=== PATIENT | female | born 1990 | race Two or more races ===

== ENCOUNTER 2016-03-30 06:57 | Emergency (ER) | payer MEDICAID ==
[~2016-03-30] VITALS: Ht 154.9 cm; Wt 95.3 kg
[2016-03-30 10:01] VITALS: BP 106/53
[2016-03-30 10:14] LABS: Urine Bilirubin Negative (Negative); Urine Blood Negative /uL (Negative); Urine Color Yellow (Yellow); Urine Glucose Normal (Normal); Urine Mucus FEW (None Seen); Urine Nitrite Negative (Negative); Urine RBC 1 /hpf (0 - 4); Urine Squamous Epithelial Cell FEW /hpf (<5); Urine Urobilinogen Normal (Negative); Urine pH 5.5 (5.0-8.0)
[2016-03-30 10:20] LABS: Urine Ketone 1+ (Negative)
== END 2016-03-30 10:35 | disposition home or self-care (01) ==
LOC: ER 06:57
DX: O23.41 Unspecified infection of urinary tract in pregnancy, first trimester (principal); Z3A.01 Less than 8 weeks gestation of pregnancy
CPT/HCPCS: 36415; 76801; 76817; 81001; 84702

== ENCOUNTER 2016-07-20 20:55 | Observation (INO) | payer MEDICAID ==
[2016-07-20] MEDS ORDERED: LACTATED RINGER'S 1,000 ML IV ONE (22:55)
[2016-07-20] MEDS ORDERED: LACTATED RINGER'S 1,000 ML IV SCH (22:55)
== END 2016-07-21 00:15 | disposition home or self-care (01) | DRG 566 ==
LOC: LDRP 20:55
PROVIDERS: ADMIT Specialist; ATTEND Specialist
DX: O21.2 Late vomiting of pregnancy (principal); Z3A.23 23 weeks gestation of pregnancy
CPT/HCPCS: 59025; 81002; G0378; 96361; 96366

== ENCOUNTER 2019-01-21 11:54 | Emergency (ER) | payer SELFPAY ==
[~2019-01-21] VITALS: Ht 154.9 cm; Wt 91.2 kg
[2019-01-21 13:47] LABS: Basophils # (auto) 0 uL; Basophils % (auto) 0.1 % (0.0-2.0); Eosinophils # (auto) 0 uL; Eosinophils % (auto) 0.5 % (0.0-7.0); Hematocrit 39.4 % (36.0-46.0); Hemoglobin 13.3 g/dL (12.2-16.2); Lymphocytes # (auto) 0.7 uL; Lymphocytes % (auto) 12.7 % (10.0-50.0); Mean Corpuscular Hemoglobin 28.9 pg (28.0-32.0); Mean Corpuscular Hgb Conc. 33.7 g/dL (32.0-36.0); Mean Corpuscular Volume 85.7 fL (80.0-100.0); Monocytes # (auto) 0.3 uL; Monocytes % (auto) 5.3 % (0.0-12.0); Neutrophils # (auto) 4.8 uL; Neutrophils % (auto) 81.4 % (37.0-80.0); Platelet Count (auto) 179 10^3/uL (140-450); Red Cell Distribution Width 15.6 % (11.8-14.3); White Blood Cell 5.8 10^3/uL (4.4-10.8)
[2019-01-21 16:00] VITALS: BP 107/72
[2019-01-21 16:34] LABS: Urine Bacteria FEW /hpf (None Seen); Urine Blood Negative /uL (Negative); Urine Hyaline Cast FEW /lpf (0 - 2); Urine Mucus FEW (None Seen); Urine Specific Gravity 1.026 (1.001-1.035); Urine WBC 3 /hpf (0 - 5)
== END 2019-01-21 16:10 | disposition home or self-care (01) ==
LOC: ER 11:54
DX: O20.0 Threatened abortion (principal); O99.511 Diseases of the respiratory system complicating pregnancy, first trimester; J45.909 Unspecified asthma, uncomplicated; Z3A.10 10 weeks gestation of pregnancy
CPT/HCPCS: 36415; 76801; 81001; 84702; 85025

== ENCOUNTER 2019-04-04 20:46 | Observation (INO) | payer MEDICAID ==
[~2019-04-04] VITALS: Ht 154.9 cm; Wt 88.5 kg
[2019-04-04] MEDS ORDERED: PREN-96 PO (21:55)
[2019-04-04 21:59] VITALS: BP 133/68
[2019-04-04] MEDS ORDERED: LACTATED RINGER'S 1,000 ML IV ONE (22:15)
[2019-04-04 22:23] LABS: Urine Bacteria NONE SEEN /hpf (None Seen); Urine Blood Negative /uL (Negative); Urine Mucus FEW (None Seen); Urine Specific Gravity 1.015 (1.001-1.035); Urine WBC 96 /hpf (0 - 5)
== END 2019-04-04 23:03 | disposition home or self-care (01) | DRG 566 ==
LOC: ER 20:48 → LDRP 21:35
PROVIDERS: ADMIT Obstetrics & Gynecology; ATTEND Obstetrics & Gynecology
DX: O26.892 Other specified pregnancy related conditions, second trimester (principal); J00 Acute nasopharyngitis [common cold]; R10.9 Unspecified abdominal pain; O99.512 Diseases of the respiratory system complicating pregnancy, second trimester; O21.2 Late vomiting of pregnancy; Z3A.21 21 weeks gestation of pregnancy
CPT/HCPCS: 59025; 81001; 81002; 96360; G0378

== ENCOUNTER 2019-06-12 09:35 | Observation (INO) | payer MEDICAID ==
[~2019-06-12] VITALS: Ht 154.9 cm; Wt 93.0 kg
[~2019-06-12 09:35] MED LIST: PREN-96 PO
[2019-06-12] MEDS ORDERED: LACTATED RINGER'S 1,000 ML IV ONE (09:56)
[2019-06-12] MEDS ORDERED: TERBUTALINE SULFATE 1 MG/ML 1ML VIAL SC SCH (10:00)
[2019-06-12] MEDS ORDERED: TERBUTALINE SULFATE 1 MG/ML 1ML VIAL SC ONE (10:12)
[2019-06-12 10:35] LABS: Urine Bacteria FEW /hpf (None Seen); Urine Blood Negative /uL (Negative); Urine Specific Gravity 1.008 (1.001-1.035); Urine WBC 16 /hpf (0 - 5)
== END 2019-06-12 11:55 | disposition home or self-care (01) | DRG 566 ==
LOC: LDRP 09:35
PROVIDERS: ADMIT Specialist; ATTEND Specialist
DX: O36.8190 Decreased fetal movements, unspecified trimester, not applicable or unspecified (principal); Z3A.00 Weeks of gestation of pregnancy not specified
CPT/HCPCS: 76815; 76818; 81001; 87086; G0378; J3105; 59025; 81002; 96361; 96365; 96372

== ENCOUNTER 2019-07-04 18:12 | Observation (INO) | payer MEDICAID | END 2019-07-04 21:00 | disposition home or self-care (01) | DRG 566 | LOC: LDRP 18:12 | PROVIDERS: ADMIT Specialist; ATTEND Specialist | DX: O9A.213 Injury, poisoning and certain other consequences of external causes complicating pregnancy, third trimester (principal); O26.893 Other specified pregnancy related conditions, third trimester; R10.9 Unspecified abdominal pain; Z3A.34 34 weeks gestation of pregnancy; W10.9XXA Fall (on) (from) unspecified stairs and steps, initial encounter; Y93.89 Activity, other specified; Y92.89 Other specified places as the place of occurrence of the external cause; Y99.8 Other external cause status | CPT/HCPCS: 59025; 76815; 81002; G0378 ==

== ENCOUNTER 2019-07-20 10:28 | Observation (INO) | payer MEDICAID ==
[2019-07-20] MEDS ORDERED: TERBUTALINE SULFATE 1 MG/ML 1ML VIAL SC ONE (11:30)
[2019-07-20] MEDS ORDERED: LACTATED RINGER'S 1,000 ML IV ONE (11:30)
[2019-07-20] MEDS ORDERED: TERBUTALINE SULFATE 1 MG/ML 1ML VIAL SC SCH (12:45)
== END 2019-07-20 13:35 | disposition home or self-care (01) | DRG 566 ==
LOC: LDRP 10:28
PROVIDERS: ADMIT Specialist; ATTEND Specialist
DX: O62.9 Abnormality of forces of labor, unspecified (principal); Z3A.37 37 weeks gestation of pregnancy
CPT/HCPCS: 59025; 81002; 96372; G0378; J3105; 96361

== ENCOUNTER 2019-07-23 21:50 | Observation (INO) | payer MEDICAID | END 2019-07-23 22:48 | disposition home or self-care (01) | DRG 566 | LOC: LDRP 21:50 | PROVIDERS: ADMIT Specialist; ATTEND Specialist | DX: O62.9 Abnormality of forces of labor, unspecified (principal); O26.893 Other specified pregnancy related conditions, third trimester; N89.8 Other specified noninflammatory disorders of vagina; O21.2 Late vomiting of pregnancy; R42 Dizziness and giddiness; Z3A.36 36 weeks gestation of pregnancy | CPT/HCPCS: 59025; 81002; G0378 ==

== ENCOUNTER 2019-07-30 15:49 | Observation (INO) | payer MEDICAID ==
[2019-07-30] MEDS ORDERED: TETANUS-DIPTH-ACEL PERTUSSIS 0.5ML SYR Tdap IM ONE (20:50)
== END 2019-07-30 18:30 | disposition home or self-care (01) | DRG 566 ==
LOC: LDRP 15:49
PROVIDERS: ADMIT Obstetrics & Gynecology; ATTEND Obstetrics & Gynecology
DX: O62.9 Abnormality of forces of labor, unspecified (principal); Z3A.37 37 weeks gestation of pregnancy; Z87.891 Personal history of nicotine dependence
CPT/HCPCS: 59025; 81002; G0378; 90715

== ENCOUNTER 2019-08-04 09:23 | Observation (INO) | payer MEDICAID | END 2019-08-04 12:50 | disposition home or self-care (01) | DRG 566 | LOC: LDRP 09:23 | PROVIDERS: ADMIT Obstetrics & Gynecology; ATTEND Obstetrics & Gynecology | DX: O26.853 Spotting complicating pregnancy, third trimester (principal); O62.9 Abnormality of forces of labor, unspecified; Z3A.38 38 weeks gestation of pregnancy | CPT/HCPCS: 59025; 81002; G0378 ==

== ENCOUNTER 2019-08-04 19:27 | Observation (INO) | payer MEDICAID | END 2019-08-04 20:23 | disposition home or self-care (01) | DRG 566 | LOC: LDRP 19:27 | PROVIDERS: ADMIT Obstetrics & Gynecology; ATTEND Obstetrics & Gynecology | DX: O26.853 Spotting complicating pregnancy, third trimester (principal); O62.9 Abnormality of forces of labor, unspecified; Z3A.38 38 weeks gestation of pregnancy | CPT/HCPCS: 59025; 81002; G0378 ==

== ENCOUNTER 2019-08-07 07:25 | Inpatient (IN) | payer MEDICAID ==
[~2019-08-07] VITALS: Ht 154.9 cm; Wt 95.3 kg
[2019-08-07] MEDS ORDERED: LACT. RINGERS/OXYTOCIN 20UNITS 1,000 ML IV SCH ×2 (07:43→13:02)
[2019-08-07] MEDS ORDERED: LACTATED RINGER'S 1,000 ML IV SCH (07:43)
[2019-08-07] MEDS ORDERED: PHISODERM TOP SOLN 240ML BTL TOP PRN (07:45)
[2019-08-07] MEDS ORDERED: WITCH HAZEL-GLYCERIN PAD TOP PRN (07:45)
[2019-08-07] MEDS ORDERED: DERMOPLAST 60ML BOTTLE TOP PRN (07:45)
[2019-08-07] MEDS ORDERED: LIDOCAINE 1% (LOCAL ANESTH.) PF 5ml SDV IJ ONE (07:45)
[2019-08-07] MEDS ORDERED: CARBOPROST TROMETHAMINE 250 MCG/1ML VIAL IM PRN (07:45)
[2019-08-07] MEDS ORDERED: METHYLERGONOVINE MALEATE 0.2 MG/ML AMP IM PRN (07:45)
[2019-08-07 08:16] LABS: Basophils # (auto) 0 10 ^3/uL (0-0.2); Basophils % (auto) 0.5 % (0.0-2.0); Eosinophils # (auto) 0 10 ^3/uL (0-0.8); Eosinophils % (auto) 0.2 % (0.0-7.0); Hematocrit 32.9 % (36.0-46.0); Hemoglobin 10.9 g/dL (12.2-16.2); Lymphocytes # (auto) 0.7 10 ^3/uL (0.4-5.4); Lymphocytes % (auto) 9.2 % (10.0-50.0); Mean Corpuscular Hemoglobin 27.9 pg (28.0-32.0); Mean Corpuscular Hgb Conc. 33.2 g/dL (32.0-36.0); Mean Corpuscular Volume 84.1 fL (80.0-100.0); Monocytes # (auto) 0.4 10 ^3/uL (0-1.3); Monocytes % (auto) 5.5 % (0.0-12.0); Neutrophils # (auto) 6.2 10 ^3/uL (1.6-8.6); Neutrophils % (auto) 84.6 % (37.0-80.0); Nucleated Red Blood Cells % 0.1 %; Platelet Count (auto) 195 10^3/uL (140-450); Red Blood Cells 3.91 10^6/uL (4.0-5.20); Red Cell Distribution Width 14.2 % (11.8-14.3); White Blood Cell 7.3 10^3/uL (4.4-10.8)
[2019-08-07 08:20] LABS: Urine Bacteria FEW /hpf (None Seen); Urine Blood 1+ /uL (Negative); Urine Mucus FEW (None Seen); Urine Specific Gravity 1.012 (1.001-1.035); Urine WBC 337 /hpf (0 - 5); Urine WBC Clumps PRESENT /hpf (None Seen)
[2019-08-07 08:32] LABS: INR 0.93 (0.9-1.15); Partial Thromboplastin Time 26.2 sec (23.64-32.05)
[2019-08-07 08:35] LABS: Albumin 2.7 g/dL (3.4-5.0); Calcium 8.7 mg/dL (8.5-10.1); Potassium 3.6 mmol/L (3.5-5.1)
[2019-08-07 08:38] LABS: Bilirubin, Total 0.6 mg/dL (0.2-1.0); Total Protein 7.2 g/dL (6.4-8.2)
[2019-08-07 08:41] LABS: Alcohol, Urine < 3.0 mg/dL (0-10); Amphetamine Screen, Urine NEGATIVE (NEGATIVE); Barbiturate Scree,Urine NEGATIVE (NEGATIVE); Benzodiazephine Screen, Urine NEGATIVE (NEGATIVE); Cannabinoid Screen, Urine NEGATIVE (NEGATIVE); Cocaine Screen, Urine NEGATIVE (NEGATIVE); Opiate Scree,Urine NEGATIVE (NEGATIVE); Phencyclidine Screen, Urine NEGATIVE (NEGATIVE)
[2019-08-07] MEDS ORDERED: BUTORPHANOL TARTRATE 2 MG/1 ML VIAL IV ONE (10:00)
[2019-08-07] MEDS ORDERED: LIDOCAINE 2%HCL (LOCAL ANESTH.) INJ 20ML MDV ONE (10:21)
[2019-08-07] MEDS ORDERED: LACT. RINGERS/OXYTOCIN 20UNITS 500 ML IV ONE (12:02)
[2019-08-07] MEDS ORDERED: ACETAMINOPHEN 325 MG TAB PO PRN (12:15)
[2019-08-07] MEDS: IBUPROFEN 600 MG TAB PO PRN (12:22)
--- NOTE | 2019-08-07 12:25 | NUR ---
Ambulation: Patient OOB with standby assistance by RN. Patient ambulated to bathroom with steady gait. Patient able to void without difficulty, void 500ml. [facility]ic[facility] teaching provided with returned demonstration by patient. Clean gown provided and bed linen changed. Patient ambulated back to bed with steady gait and no distress noted.
--- NOTE | 2019-08-07 12:55 | NUR ---
Educated on need to massage fundus regularly to reduce the risk of hemorrhage, especially since mother is not and has had four other children. Educated on need to call for assistance if mother feels a gushing of fluid. Verbalized understanding.
--- NOTE | 2019-08-07 14:05 | NUR ---
Patient complaining of nausea. Requested medication. Called Dr Ho informed of request and nausea. Verbalized understanding. Received orders for claribel 4mg IV q 4 hours prn nausea/ emesis.
[2019-08-07] MEDS ORDERED: ONDANSETRON HCL 4 MG/2 ML VIAL IV PRN (14:15)
[2019-08-07 15:12] VITALS: BP 109/56
[2019-08-07 19:00] VITALS: BP 122/61
[2019-08-07 23:00] VITALS: BP 112/74
[2019-08-08 03:00] VITALS: BP 95/50
[2019-08-08] MEDS: IBUPROFEN 600 MG TAB PO PRN (05:35)
--- NOTE | 2019-08-08 06:05 | NUR ---
ASSUMED CARE OF STABLE PT AFTER RECEIVING REPORT FROM Tyree CHERRY RN.
[2019-08-08 07:00] VITALS: BP 91/55
[2019-08-08] MEDS ORDERED: DOCUSATE CALCIUM 240 MG CAP PO SCH (10:00)
[2019-08-08 10:45] VITALS: BP 113/68
--- NOTE | 2019-08-08 10:50 | NUR ---
Discharge: Discharge instructions given as ordered. Pt encouraged to follow up with [facility] as instructed. All questions and concerns addressed. Patient verbalized understanding. Medication reconciliation completed and copy given to patient. No vaccines given to patient. Patient encouraged to prepare to depart unit.
--- NOTE | 2019-08-08 11:35 | NUR ---
PLAN OF CARE ABOUT GOING UNDER PHOTO THERAPY DISCUSSED WITH PT, PT NEEDS A MINUTE TO DECIDE IF SHE WOULD LIKE TO STAY OR BE DC'D HOME.
--- NOTE | 2019-08-08 13:10 | NUR ---
Discharge: Patient taken to vehicle via steady gait with all personal belongings, accompanied by staff and family member. No distress noted at time of departure, no adverse changes in status since initial assessment.
== END 2019-08-08 13:10 | disposition home or self-care (01) | DRG 560 ==
LOC: LDRP 07:25
PROVIDERS: ADMIT Obstetrics & Gynecology; ATTEND Obstetrics & Gynecology
PROC: 10E0XZZ Delivery of Products of Conception, External Approach (ICD-10-PCS; principal; 2019-08-07)
PROC: 0UQMXZZ Repair Vulva, External Approach (ICD-10-PCS; 2019-08-07)
DX: O69.81X0 Labor and delivery complicated by cord around neck, without compression, not applicable or unspecified (principal); O64.0XX0 Obstructed labor due to incomplete rotation of fetal head, not applicable or unspecified; O71.82 Other specified trauma to perineum and vulva; Z37.0 Single live birth; Z3A.39 39 weeks gestation of pregnancy
CPT/HCPCS: 36415; 59025; 59409; 80053; 80307; 81001; 84112; 85025; 85610; 85730; 86592; 86850; 86900; 86901; 96360; 96372; G0378; J2405; J2590